=== PATIENT | female | born 1990 | race Caucasian/White ===

== ENCOUNTER 2020-03-10 13:51 | Emergency (ER) | payer OTHER ==
[~2020-03-10] VITALS: Ht 170.2 cm; Wt 77.1 kg
[~2020-03-10 13:51] MED LIST: HUMALOG100 UNIT/1 SUBQ
[2020-03-10] MEDS ORDERED: NAPROXEN250 MG PO (14:02)
[2020-03-10] MEDS ORDERED: CLONAZEPAM 0.50.5 M1 PO (14:02)
[2020-03-10 14:20] LABS: ABSOLUTE EOSINOPHILS 0.1 thou/uL (0.0-0.7); ABSOLUTE LYMPHOCYTES 1.3 thou/uL (0.8-5.3); ABSOLUTE MONOCYTES 0.3 thou/uL (0.0-1.2); ABSOLUTE NEUTROPHILS 4.8 thou/uL (1.6-8.1); BASOPHILS 0.7 %; EOSINOPHILS 1.1 %; HEMATOCRIT 38.9 % (37.0-47.0); HEMOGLOBIN 13.8 gm/dL (12.0-15.0); LYMPHOCYTES 20.5 %; MCH 29.9 pg (26.0-34.0); MCHC 35.5 g/dL (28.0-37.0); MCV 84.2 fL (80.0-100.0); MONOCYTES 4.7 %; MPV 8.6 fl. (7.2-11.1); NUCLEATED RBCS 0 /100WBC; PLATELET COUNT* 192 thou/uL (150-400); RBC 4.62 mil/uL (4.20-5.00); RDW-CV 12.9 % (10.5-14.5); WBC 6.5 thou/uL (4.0-11.0)
[2020-03-10 14:22] LABS: URINE BILIRUBIN NEGATIVE (Negative); URINE BLOOD NEGATIVE (Negative); URINE CLARITY CLEAR; URINE COLOR YELLOW; URINE GLUCOSE-RANDOM NEGATIVE (Negative); URINE KETONES NEGATIVE (Negative); URINE LEUKOCYTES-REFLEX NEGATIVE (Negative); URINE NITRITE-REFLEX NEGATIVE (Negative); URINE PROTEIN NEGATIVE (Negative); URINE SPECIFIC GRAVITY <= 1.005 (1.005-1.030); URINE UROBILINOGEN 0.2 E.U./dl (0.2-1.0)
[2020-03-10 14:28] LABS: CALCIUM 8.4 mg/dL (8.5-10.1); CREATININE 0.8 mg/dL (0.6-1.3); POTASSIUM 3.5 mmol/L (3.5-5.1)
[2020-03-10 14:32] LABS: ALBUMIN 4.2 g/dL (3.4-5.0); TOTAL BILIRUBIN 0.4 mg/dL (<0.1-1.0); TOTAL PROTEIN 7.4 g/dL (6.4-8.2)
[2020-03-10] MEDS ORDERED: IBUPROFEN 800800 M1 PO (15:53)
[2020-03-10 15:55] VITALS: BP 138/94
== END 2020-03-10 15:55 | disposition home or self-care (01) ==
LOC: M.ERS 13:51
PROVIDERS: Nurse Practitioner Psychiatric/Mental Health
DX: R16.1 Splenomegaly, not elsewhere classified (principal); E10.9 Type 1 diabetes mellitus without complications; Z90.710 Acquired absence of both cervix and uterus; Z88.8 Allergy status to other drugs, medicaments and biological substances